=== PATIENT | male | born 1945 | race Caucasian/White ===

== ENCOUNTER 2021-06-17 13:51 | Emergency (ER) | payer MEDICARE, OTHER ==
[2021-06-17] MEDS ORDERED: Sodium Chloride 0.9% 10 ML Syringe FLUSH PRN (14:35)
--- NOTE | 2021-06-17 14:54 | EDM.PDOC ---
<Gab Sosa - Last Filed: 06/18/21 07:42> ED HPI GENERAL MEDICAL PROBLEM - General Chief Complaint: Respiratory Problem Stated Complaint: LOW OXYGEN Time Seen by Provider: 06/17/21 14:15 - Related Data Allergies Allergy/AdvReac Type Severity Reaction Status Date / Time oxycodone Allergy Severe Other Verified 06/17/21 14:34 Home Meds: Home Meds Dutasteride 0.5 mg PO BEDTIME 06/17/21 [History] Folic Acid 1 mg PO BID 06/17/21 [History] Metoprolol Succinate 25 mg PO BEDTIME 06/17/21 [History] Potassium Chloride 10 meq PO BID 06/17/21 [History] Rosuvastatin [Crestor] 20 mg PO BEDTIME 06/17/21 [History] amLODIPine [Norvasc] 5 mg PO BID 06/17/21 [History] metHOTREXate sodium [Methotrexate] 10 mg PO TH 06/17/21 [History] predniSONE [Prednisone] 5 mg PO DAILY 06/17/21 [History] Course - Re-Assessments/Exams Free Text/Narrative Re-Assessment/Exam: 06/18/21 07:42 The patient had an uneventful night. He was switched to a nonrebreather at 5 L/min while supine and sleeping, with an oxygen saturation 90 to 94%, but now that he is awake, we will switch him back to nasal cannula. Because the patient's only need is supplemental oxygen, and because we are on diversion, I suggested to him that we could discharge him home. He is fine with that. We will make arrangements for home supplemental oxygen. Instead of prescribing dexamethasone, the patient can resume his usual prednisone 5 mg/day. Departure - Departure Time of Disposition: 07:45 Disposition: Home, Self-Care 01 Condition: Fair Clinical Impression: COVID-19, Hypoxemia - Discharge Information *PRESCRIPTION DRUG MONITORING PROGRAM REVIEWED*: Not Applicable *COPY OF PRESCRIPTION DRUG MONITORING REPORT IN PATIENT BAM: Not Applicable Instructions: COVID-19 Referrals: Massimo Cabral MD [Primary Care Provider] - Forms: ED Department Discharge Additional Instructions: You were seen in the emergency room after your oxygen saturation was found to be low. Work-up in the ER included several blood tests, a chest x-ray, a CT angiogram of your chest, and an ECG. Arrangements have been made for you to receive home supplemental oxygen. You are currently at 3 L of oxygen per nasal cannula, with an oxygen saturation 91 to 92%. Check your oxygen saturation with your home pulse oximeter several times a day. You may turn your oxygen level up and down to keep your oxygen saturation around 92%. If you require 6 L of oxygen in order to maintain an adequate oxygen saturation, please return to the ER for reevaluation. You may resume your usual prednisone 5 mg/day. Please follow-up with your PCP, Dr. Massimo Cabral, at the next available appointment. <Rosa Isela Freeman - Last Filed: 06/19/21 22:00> ED HPI GENERAL MEDICAL PROBLEM - General Source of Information: Reports: Patient, Family, RN Notes Reviewed History Limitations: Reports: No Limitations - History of Present Illness INITIAL COMMENTS - FREE TEXT/NARRATIVE: Patient is a 76-year-old male presenting to the emergency department with complaints of hypoxia with a known diagnosis of COVID-19. Patient reports he developed Covid symptoms approximately 9 days ago. He describes fatigue, weakness, low-grade fevers, and cough. He has been monitoring her oxygen saturations at home and states they have been 82 to 85% on room air. He went to [facility] today to have infusion of monoclonal antibodies and was advised to come to ER as he was hypoxic. He denies any chest pain, significant shortness of breath, nausea, vomiting, diarrhea. Patient states that he is not have any diagnosed lung conditions, however he is in the process of being worked up for likely interstitial lung disease. He has never been on home oxygen. He has a history of rheumatoid arthritis, but is off his medications at this time as it was felt that they could be worsening his lung condition. Patient received two doses of Pfizer vaccine in September, however, he did not get a booster thus far. Past Medical History HEENT History: Reports: Cataract Cardiovascular History: Reports: Afib, High Cholesterol, Hypertension, [place], Stents Respiratory History: Reports: Other (See Below) Other Respiratory History: suspicion if interstitial lung disease Gastrointestinal History: Reports: Hemorrhoids Genitourinary History: Reports: Prostate Disorder Neurological History: Reports: None Psychiatric History: Reports: None Hematologic History: Reports: None Immunologic History: Reports: Other (See Below) Other Immunologic History: RA Oncologic (Cancer) History: Reports: None Dermatologic History: Reports: None - Infectious Disease History Infectious Disease History: Reports: None ED ROS GENERAL - Review of Systems Review Of Systems: Comprehensive ROS is negative, except as noted in HPI. ED EXAM, GENERAL - Physical Exam Exam: See Below Exam Limited By: No Limitations General Appearance: Alert, WD/WN, No Apparent Distress Respiratory/Chest: No Respiratory Distress, Lungs Clear, Normal Breath Sounds, No Accessory Muscle Use, Chest Non-Tender Cardiovascular: Normal Peripheral Pulses, Regular Rate, Rhythm, No Edema, No Gallop, No JVD, No Murmur, No Rub GI/Abdominal: Normal Bowel Sounds, Soft, Non-Tender, No Organomegaly, No Distention, No Abnormal Bruit, No Mass Neurological: Alert, Oriented, CN II-XII Intact, Normal Cognition, Normal Gait, Normal Reflexes, No Motor/Sensory Deficits Psychiatric: Normal Affect, Normal Mood Skin Exam: Warm, Dry, Intact, Normal Color, No Rash Course - Vital Signs Last Recorded V/S: Last Vital Signs Temp 97.0 F 06/18/21 00:02 Pulse 74 06/18/21 00:02 Resp 20 06/18/21 00:02 BP 129/116 H 06/18/21 00:02 Pulse Ox 92 L 06/18/21 00:30 - Orders/Labs/Meds Labs: Laboratory Tests 06/17/21 06/17/21 06/17/21 Range/Units 15:16 15:16 15:16 WBC 6.39 (4.23-9.07) K/mm3 RBC 5.35 (4.63-6.08) M/mm3 Hgb 16.3 (13.7-17.5) gm/dl Hct 49.1 (40.1-51.0) % MCV 91.8 (79.0-92.2) fl MCH 30.5 (25.7-32.2) pg MCHC 33.2 (32.2-35.5) g/dl RDW Std Deviation 48.9 H (35.1-43.9) fL Plt Count 141 L (163-337) K/mm3 MPV 9.4 (9.4-12.3) fl Neut % (Auto) 84.0 H (34.0-67.9) % Lymph % (Auto) 8.1 L (21.8-53.1) % Garvin % (Auto) 7.2 (5.3-12.2) % Eos % (Auto) 0 L (0.8-7.0) Baso % (Auto) 0.2 (0.1-1.2) % Neut # (Auto) 5.37 (1.78-5.38) K/mm3 Lymph # (Auto) 0.52 L (1.32-3.57) K/mm3 Garvin # (Auto) 0.46 (0.30-0.82) K/mm3 Eos # (Auto) 0.00 L (0.04-0.54) K/mm3 Baso # (Auto) 0.01 (0.01-0.08) K/mm3 Manual Slide Review D-Dimer, Quantitative 1.47 H (0.19-0.50) mg/L Sodium 131 L (136-145) mEq/L Potassium 4.7 (3.5-5.1) mEq/L Chloride 96 L (98-107) mEq/L Carbon Dioxide 26 (21-32) mEq/L Anion Gap 13.7 (5-15) BUN 22 H (7-18) mg/dL Creatinine 1.3 (0.7-1.3) mg/dL Est Cr Clr Drug Dosing TNP Estimated GFR (MDRD) 54 (>60) mL/min BUN/Creatinine Ratio 16.9 (14-18) Glucose 122 H (70-99) mg/dL Calcium 8.5 (8.5-10.1) mg/dL Total Bilirubin 0.7 (0.2-1.0) mg/dL AST 46 H (15-37) U/L ALT 32 (16-63) U/L Alkaline Phosphatase 52 (46-116) U/L Troponin I < 0.017 (0.00-0.056) ng/mL C-Reactive Protein 6.9 H* (<1.0) mg/dL NT-Pro-B Natriuret Pep (0-450) pg/mL Total Protein 6.9 (6.4-8.2) g/dl Albumin 2.8 L (3.4-5.0) g/dl Globulin 4.1 gm/dL Albumin/Globulin Ratio 0.7 L (1-2) 06/17/21 06/18/21 06/18/21 Range/Units 15:16 05:15 05:15 WBC 5.13 (4.23-9.07) K/mm3 RBC 5.33 (4.63-6.08) M/mm3 Hgb 16.1 (13.7-17.5) gm/dl Hct 48.9 (40.1-51.0) % MCV 91.7 (79.0-92.2) fl MCH 30.2 (25.7-32.2) pg MCHC 32.9 (32.2-35.5) g/dl RDW Std Deviation 48.8 H (35.1-43.9) fL Plt Count 143 L (163-337) K/mm3 MPV 9.3 L (9.4-12.3) fl Neut % (Auto) 73.1 H (34.0-67.9) % Lymph % (Auto) 18.3 L (21.8-53.1) % Garvin % (Auto) 7.8 (5.3-12.2) % Eos % (Auto) 0 L (0.8-7.0) Baso % (Auto) 0.2 (0.1-1.2) % Neut # (Auto) 3.75 (1.78-5.38) K/mm3 Lymph # (Auto) 0.94 L (1.32-3.57) K/mm3 Garvin # (Auto) 0.40 (0.30-0.82) K/mm3 Eos # (Auto) 0.00 L (0.04-0.54) K/mm3 Baso # (Auto) 0.01 (0.01-0.08) K/mm3 Manual Slide Review Normal smear D-Dimer, Quantitative (0.19-0.50) mg/L Sodium 135 L (136-145) mEq/L Potassium 5.1 (3.5-5.1) mEq/L Chloride 100 (98-107) mEq/L Carbon Dioxide 29 (21-32) mEq/L Anion Gap 11.1 (5-15) BUN 27 H (7-18) mg/dL Creatinine 1.2 (0.7-1.3) mg/dL Est Cr Clr Drug Dosing TNP Estimated GFR (MDRD) 59 (>60) mL/min BUN/Creatinine Ratio 22.5 H (14-18) Glucose 129 H (70-99) mg/dL Calcium 8.3 L (8.5-10.1) mg/dL Total Bilirubin 0.5 (0.2-1.0) mg/dL AST 41 H (15-37) U/L ALT 32 (16-63) U/L Alkaline Phosphatase 50 (46-116) U/L Troponin I (0.00-0.056) ng/mL C-Reactive Protein 8.2 H* (<1.0) mg/dL NT-Pro-B Natriuret Pep 156 (0-450) pg/mL Total Protein 5.8 L (6.4-8.2) g/dl Albumin 2.6 L (3.4-5.0) g/dl Globulin 3.2 gm/dL Albumin/Globulin Ratio 0.8 L (1-2) Meds: Medications Discontinued Medications Generic Name Dose Route Start Last Admin Trade Name Freq PRN Reason Stop Dose Admin Amlodipine Besylate 5 mg 06/17/21 21:45 06/17/21 23:46 Amlodipine 5 Mg Tab PO 5 mg BID JOMAR Administration Dexamethasone 6 mg 06/17/21 15:40 06/17/21 16:26 Dexamethasone 4 Mg Tab PO 06/17/21 15:41 6 mg ONETIME ONE Administration Finasteride 5 mg 06/18/21 21:00 Finasteride 5 Mg Tab PO BEDTIME JOMAR Finasteride 5 mg 06/17/21 23:24 06/17/21 23:47 Finasteride 5 Mg Tab PO 5 mg BEDTIME JOMAR Administration Folic Acid 1 mg 06/17/21 21:45 06/17/21 23:47 Folic Acid 1 Mg Tab PO 1 mg BID JOMAR Administration Remdesivir 200 mg/ Sodium 250 mls @ 250 mls/hr 06/17/21 19:31 06/17/21 21:25 Chloride IV 06/17/21 19:32 250 mls/hr ONETIME ONE Administration Iopamidol 100 ml 06/17/21 17:24 06/17/21 17:48 Iopamidol 755 Mg/Ml 100 Ml Bottle IVPUSH 06/17/21 17:25 100 ml ONETIME ONE Administration Metoprolol Succinate 25 mg 06/17/21 21:44 06/17/21 23:47 Metoprolol Succinate 25 Mg Tab.Er PO 25 mg BEDTIME JOMAR Administration Non-Formulary Medication 0.5 mg 06/17/21 21:43 06/17/21 23:57 Dutasteride PO Not Given BEDTIME JOMAR Non-Formulary Medication 10 meq 06/17/21 21:45 06/17/21 23:58 Potassium Chloride [Potassium Chloride] PO Not Given BID JOMAR Non-Formulary Medication 20 mg 06/17/21 21:44 06/17/21 23:59 Rosuvastatin PO Not Given BEDTIME JOMAR Potassium Chloride 10 meq 06/17/21 21:00 06/17/21 23:47 Potassium Chloride 10 Meq Tab.Er PO 10 meq BID JOMAR Administration Rosuvastatin Calcium 20 mg 06/18/21 21:00 Rosuvastatin 10 Mg Tab PO BEDTIME JOMAR Simvastatin 40 mg 06/18/21 21:00 Simvastatin 40 Mg Tab PO BEDTIME JOMAR Simvastatin 40 mg 06/17/21 23:23 06/17/21 23:45 Simvastatin 40 Mg Tab PO 40 mg BEDTIME JOMAR Administration Sodium Chloride 10 ml 06/17/21 14:35 06/17/21 17:49 Sodium Chloride 0.9% 10 Ml Syringe FLUSH 10 ml ASDIRECTED PRN Administration Keep Vein Open - Re-Assessments/Exams Free Text/Narrative Re-Assessment/Exam: Patient is a 76-year-old male presenting to the emergency department with complaints of hypoxia with a known diagnosis of Covid. He is approximately 9 days into his illness. Oxygen saturation during triage was in the low to mid 80s. He is currently on 3 L of oxygen saturating low 90s. Patient denies any diagnosed lung conditions, however he is in the process of being worked up for interstitial lung disease. History of RA for which he takes prednisone and methotrexate. He denies shortness of breath. States early in his illness he had a significant cough, however this has improved. Has had low-grade fevers as well as fatigue and weakness. I have ordered blood work, EKG, chest x-ray. Will give dexamethasone 6 mg p.o. Prednisone will be held while patient is on dexamethasone. 06/17/21 1700 Hematology significant for platelets slightly low 141, D-dimer 1.47, sodium 131, chloride 96, BUN 22, CRP 6.9. Troponin is undetectably low. Chest x-ray shows a minimal density of the left lung base possibly due to minimal Covid pneumonia. Given patient's elevated D-dimer and hypoxia with out significant Covid pneumonia, I have ordered a CT angiogram of the chest to rule out PE. Patient will require hospital admission. Unfortunate there are no beds available in our facility. Have been advised that there is a bed available in [place]. Awaiting callback from the hospitalist. 06/17/211929 CT angiogram of the chest impression as follows: 1. No findings of pulmonary embolism. 2. Compression deformity with an L1 which is likely old. 3. Groundglass appearance within the upper lungs and lower lungs compatible with Covid pneumonia. 4. Other chronic findings as described above. Received notification from [facility] house supervisor in [place] that they will not be able to take the patient. Patient has been placed on the waiting list for the [facility]. He will remain in the ER until placement can be foun d. I will begin treatment with remdesivir. He is currently on 3 L of oxygen saturating the low 90s. 06/17/21 22:[address] Sosa. He will assume care and disposition of patient due to end of shift.
--- NOTE | 2021-06-17 15:21 | CR ---
Chest: Frontal view of the chest was obtained. Comparison: No prior chest imaging is available. Heart size is normal. Tortuous thoracic aorta is seen. Minimal density is seen within the left lung base. Lungs otherwise are clear. Bony structures show nothing acute. Impression: 1. Minimal density within the left lung base possibly due to minimal COVID pneumonia. 2. Nothing acute is otherwise seen on frontal chest x-ray. Diagnostic code #3
[2021-06-17] MEDS ORDERED: Dexamethasone 4 MG Tab PO ONE (15:40)
[2021-06-17] MEDS ORDERED: Iopamidol 755 Mg/ML 100 ML Bottle IVPUSH ONE (17:24)
--- NOTE | 2021-06-17 18:18 | CT ---
CT chest Technique: Multiple axial sections through the chest were obtained. Intravenous contrast was utilized. Study has been performed as a pulmonary angiogram protocol. Comparison: Chest x-ray performed earlier on the same day (2:46 PM). Findings: Pulmonary arteries are well opacified. No filling defects are seen to indicate pulmonary embolism. Thoracic aorta shows slight atherosclerotic calcification with no aneurysm. Mediastinum shows no adenopathy. No axillary adenopathy is seen. Coronary artery calcification is noted. No pericardial thickening is seen. Small hiatal hernia is present. Cyst is noted within the right kidney measuring approximately 3.5 cm. Smaller cyst is noted within the left kidney measuring approximately 2.2 cm. Mild patchy groundglass appearance is seen within the upper lungs as well as lower lungs compatible with mild COVID pneumonia. Bone window settings were reviewed which show a compression deformity within L1 which is most likely old. No acute osseous abnormalities are seen. Impression: 1. No findings of pulmonary embolism. 2. Compression deformity within L1 which is likely old. 3. Groundglass appearance within the upper lungs and lower lungs compatible with COVID pneumonia. 4. Other chronic findings as described above. Diagnostic code #3
[2021-06-17] MEDS ORDERED: REMDESIVIR 200 MG in Sodium Chloride 0.9% 250 ML IV ONE (19:31)
[2021-06-17] MEDS ORDERED: Potassium Chloride 10 MEQ Tab.ER PO SCH (21:00)
[2021-06-17] MEDS ORDERED: DUTASTERIDE 0.5 MG PO SCH (21:43)
[2021-06-17] MEDS ORDERED: Metoprolol Succinate 25 MG Tab.ER PO SCH (21:44)
[2021-06-17] MEDS ORDERED: Non-Formulary Medication 1 Each (Rosuvastatin 20 MG Tablet) PO SCH (21:44)
[2021-06-17] MEDS ORDERED: amLODIPine 5 MG Tab PO SCH (21:45)
[2021-06-17] MEDS ORDERED: Folic Acid 1 MG Tab PO SCH (21:45)
[2021-06-17] MEDS ORDERED: Non-Formulary Medication 1 Each (Potassium Chloride [Potassium Chloride] 10 MEQ Capsule.Er PO SCH (21:45)
[2021-06-17] MEDS ORDERED: Simvastatin 40 MG Tab PO SCH (23:23)
[2021-06-17] MEDS ORDERED: Finasteride 5 MG Tab PO SCH (23:24)
[2021-06-18] MEDS ORDERED: Rosuvastatin 10 MG Tab PO SCH (21:00)
[2021-06-18] MEDS ORDERED: Finasteride 5 MG Tab PO SCH (21:00)
[2021-06-18] MEDS ORDERED: Simvastatin 40 MG Tab PO SCH (21:00)
== END 2021-06-18 09:50 | disposition home or self-care (01) ==
LOC: JD.ED 13:51
DX: U07.1 COVID-19 (principal); R09.02 Hypoxemia; I48.91 Unspecified atrial fibrillation; I10 Essential (primary) hypertension; E78.00 Pure hypercholesterolemia, unspecified; I25.2 Old myocardial infarction; I44.5 Left posterior fascicular block; Z88.5 Allergy status to narcotic agent; Z79.899 Other long term (current) drug therapy; R06.02 Shortness of breath
CPT/HCPCS: 36415; 71045; 71275; 80053; 83880; 84484; 85025; 85379; 86140; 93005; 96365; 99285; A9270; J7050; J8540; Q9967; 93010

== ENCOUNTER 2021-06-20 14:13 | Emergency (ER) | payer MEDICARE, OTHER ==
[2021-06-20] MEDS ORDERED: Sodium Chloride 0.9% 10 ML Syringe FLUSH PRN (14:31)
--- NOTE | 2021-06-20 14:55 | EDM.PDOC ---
ED HPI GENERAL MEDICAL PROBLEM - General Chief Complaint: Respiratory Problem Stated Complaint: ALEXA AMB Time Seen by Provider: 06/20/21 14:24 Source of Information: Reports: Patient, Old Records (visit from 06/17/2021), RN Notes Reviewed History Limitations: Reports: No Limitations - History of Present Illness INITIAL COMMENTS - FREE TEXT/NARRATIVE: Patient is a 76-year-old male brought to the ER by [facility] for the evaluation of his COVID-19 illness. Patient states that he has been ill since 09 June with symptoms, and was tested on 06/11/2021 and was positive. Notes that he went to the [facility] on 17 June to see if he could get the antibody infusion but was found to be hypoxic and sent to the ER for evaluation. Work-up in the ER included some labs, and a chest CT which showed no signs of pulmonary embolus, but diffuse Covid pneumonia, and he was sent home with home oxygen at that time. Patient states has been using this at home and has not needed over 4 L that he was aware of, but he called the ambulance today because he was just not feeling well. He presents to the ER on 10 L via nonrebreather, and O2 sats are about 92% on room air. Patient does not appear visibly dyspneic, but slightly breathless with sentences. No increased fevers or chills, no change in sputum color or worsening cough he states he has some abdomen tenderness due to the coughing however. Not having any nausea/vomiting/diarrhea. States he does have a history of RA and is on methotrexate. - Related Data Allergies Allergy/AdvReac Type Severity Reaction Status Date / Time oxycodone Allergy Severe Other Verified 06/20/21 14:43 Home Meds: Home Meds Dutasteride 0.5 mg PO BEDTIME 06/17/21 [History] Folic Acid 1 mg PO BID 06/17/21 [History] Metoprolol Succinate 25 mg PO BEDTIME 06/17/21 [History] Potassium Chloride 10 meq PO BID 06/17/21 [History] Rosuvastatin [Crestor] 20 mg PO BEDTIME 06/17/21 [History] amLODIPine [Norvasc] 5 mg PO BID 06/17/21 [History] metHOTREXate sodium [Methotrexate] 10 mg PO TH 06/17/21 [History] predniSONE [Prednisone] 5 mg PO DAILY 06/17/21 [History] Past Medical History HEENT History: Reports: Cataract Cardiovascular History: Reports: Afib, High Cholesterol, Hypertension, [place], Stents Respiratory History: Reports: Other (See Below) Other Respiratory History: suspicion if interstitial lung disease secondary to RA/methotrexate Gastrointestinal History: Reports: Hemorrhoids Genitourinary History: Reports: Prostate Disorder Immunologic History: Reports: Other (See Below) Other Immunologic History: RA - Infectious Disease History Infectious Disease History: Reports: Novel Coronavirus (06/11/2021) Social & Family History - Family History Family Medical History: No Pertinent Family History - Caffeine Use Caffeine Use: Reports: Coffee - Recreational Drug Use Recreational Drug Use: No ED ROS GENERAL - Review of Systems Review Of Systems: Comprehensive ROS is negative, except as noted in HPI. ED EXAM, GENERAL - Physical Exam Exam: See Below Exam Limited By: No Limitations General Appearance: Alert, WD/WN, No Apparent Distress Respiratory/Chest: No Respiratory Distress, Lungs Clear, No Accessory Muscle Use, Chest Non-Tender, Decreased Breath Sounds (diffuse bilaterally) Cardiovascular: Normal Peripheral Pulses, Regular Rate, Rhythm, No Edema Extremities: Normal Inspection, Normal Capillary Refill Neurological: Alert, Oriented, Normal Cognition, No Motor/Sensory Deficits Psychiatric: Normal Affect, Normal Mood Skin Exam: Warm, Dry, Intact, Normal Color, No Rash Course - Vital Signs Last Recorded V/S: Last Vital Signs Temp 98.0 F 06/20/21 14:26 Pulse 101 H 06/20/21 14:26 Resp 22 H 06/20/21 14:26 BP 106/60 06/20/21 14:26 Pulse Ox 90 L 06/20/21 14:26 - Orders/Labs/Meds Orders: Active Orders 24 hr Category Date Time Status Oxygen Therapy, ED [RC] ASDIRECTED Care 06/20/21 14:31 Active Peripheral IV Care [RC] . DIRECTED Care 06/20/21 14:31 Active Sodium Chloride 0.9% [Saline Flush] Med 06/20/21 14:31 Active 10 ml FLUSH ASDIRECTED PRN Peripheral IV Insertion Adult [OM.PC] Routine Oth 06/20/21 14:31 Ordered Medication Orders Sodium Chloride (Sodium Chloride 0.9% 10 Ml Syringe) 10 ml FLUSH ASDIRECTED PRN PRN Reason: Keep Vein Open Last Admin: 06/20/21 15:31 Dose: 10 ml Documented by: ALTA Labs: Laboratory Tests 06/20/21 06/20/21 06/20/21 Range/Units 14:53 14:53 14:53 WBC 6.81 (4.23-9.07) K/mm3 RBC 5.60 (4.63-6.08) M/mm3 Hgb 16.6 (13.7-17.5) gm/dl Hct 51.1 H (40.1-51.0) % MCV 91.3 (79.0-92.2) fl MCH 29.6 (25.7-32.2) pg MCHC 32.5 (32.2-35.5) g/dl RDW Std Deviation 49.3 H (35.1-43.9) fL Plt Count 220 D (163-337) K/mm3 MPV 9.3 L (9.4-12.3) fl Neut % (Auto) 87.3 H (34.0-67.9) % Lymph % (Auto) 10.3 L (21.8-53.1) % Miller % (Auto) 1.6 L (5.3-12.2) % Eos % (Auto) 0.1 L (0.8-7.0) Baso % (Auto) 0.1 (0.1-1.2) % Neut # (Auto) 5.94 H (1.78-5.38) K/mm3 Lymph # (Auto) 0.70 L (1.32-3.57) K/mm3 Miller # (Auto) 0.11 L (0.30-0.82) K/mm3 Eos # (Auto) 0.01 L (0.04-0.54) K/mm3 Baso # (Auto) 0.01 (0.01-0.08) K/mm3 D-Dimer, Quantitative (0.19-0.50) mg/L Sodium 136 (136-145) mEq/L Potassium 4.1 (3.5-5.1) mEq/L Chloride 99 (98-107) mEq/L Carbon Dioxide 26 (21-32) mEq/L Anion Gap 15.1 H (5-15) BUN 24 H (7-18) mg/dL Creatinine 1.1 (0.7-1.3) mg/dL Est Cr Clr Drug Dosing 59.91 mL/min Estimated GFR (MDRD) > 60 (>60) mL/min BUN/Creatinine Ratio 21.8 H (14-18) Glucose 114 H (70-99) mg/dL Calcium 8.4 L (8.5-10.1) mg/dL Magnesium 1.7 L (1.8-2.4) mg/dL Total Bilirubin 1.1 H (0.2-1.0) mg/dL AST 48 H (15-37) U/L ALT 41 (16-63) U/L Alkaline Phosphatase 61 (46-116) U/L Troponin I (0.00-0.056) ng/mL C-Reactive Protein 5.9 H* (<1.0) mg/dL Total Protein 7.0 (6.4-8.2) g/dl Albumin 2.7 L (3.4-5.0) g/dl Globulin 4.3 gm/dL Albumin/Globulin Ratio 0.6 L (1-2) 06/20/21 06/20/21 Range/Units 14:53 14:53 WBC (4.23-9.07) K/mm3 RBC (4.63-6.08) M/mm3 Hgb (13.7-17.5) gm/dl Hct (40.1-51.0) % MCV (79.0-92.2) fl MCH (25.7-32.2) pg MCHC (32.2-35.5) g/dl RDW Std Deviation (35.1-43.9) fL Plt Count (163-337) K/mm3 MPV (9.4-12.3) fl Neut % (Auto) (34.0-67.9) % Lymph % (Auto) (21.8-53.1) % Miller % (Auto) (5.3-12.2) % Eos % (Auto) (0.8-7.0) Baso % (Auto) (0.1-1.2) % Neut # (Auto) (1.78-5.38) K/mm3 Lymph # (Auto) (1.32-3.57) K/mm3 Miller # (Auto) (0.30-0.82) K/mm3 Eos # (Auto) (0.04-0.54) K/mm3 Baso # (Auto) (0.01-0.08) K/mm3 D-Dimer, Quantitative 1.89 H (0.19-0.50) mg/L Sodium (136-145) mEq/L Potassium (3.5-5.1) mEq/L Chloride (98-107) mEq/L Carbon Dioxide (21-32) mEq/L Anion Gap (5-15) BUN (7-18) mg/dL Creatinine (0.7-1.3) mg/dL Est Cr Clr Drug Dosing mL/min Estimated GFR (MDRD) (>60) mL/min BUN/Creatinine Ratio (14-18) Glucose (70-99) mg/dL Calcium (8.5-10.1) mg/dL Magnesium (1.8-2.4) mg/dL Total Bilirubin (0.2-1.0) mg/dL AST (15-37) U/L ALT (16-63) U/L Alkaline Phosphatase (46-116) U/L Troponin I < 0.017 (0.00-0.056) ng/mL C-Reactive Protein (<1.0) mg/dL Total Protein (6.4-8.2) g/dl Albumin (3.4-5.0) g/dl Globulin gm/dL Albumin/Globulin Ratio (1-2) Meds: Medications Generic Name Dose Route Start Last Admin Trade Name Freq PRN Reason Stop Dose Admin Sodium Chloride 10 ml 06/20/21 14:31 06/20/21 15:31 Sodium Chloride 0.9% 10 Ml Syringe FLUSH 10 ml ASDIRECTED PRN Administration Keep Vein Open - Re-Assessments/Exams Free Text/Narrative Re-Assessment/Exam: 06/20/21 14:55 Patient presents to the ED for his ongoing COVID-19 and hypoxia; he is requiring quite a bit of oxygen at this time. We will go ahead and repeat labs and get a chest x-ray. Patient will likely need hospital admission d/t his increased oxygen needs. 06/20/21 16:47 CBC is unremarkable, D-dimer elevated at 1.89, CRP at 5.9. Troponin is still pending. I did discuss the case with Dr. Ghosh, hospitalist on-call, does recomm end that the patient be transferred to a higher level of care d/t oxygen needs and history of methotrexate and prednisone. I was able to speak with Dr. Gonzáles at [facility] in [place], who did ultimately accept the patient for transfer. He does recommend 10 mg IV dexamethasone due to the patient's steroid use chronically. Patient was made aware of this and he does agree to the transfer at this time. We will go ahead and try to lay the patient prone to see if this helps improve his oxygenation while we are waiting transfer. Departure - Departure Time of Disposition: 18:32 Disposition: DC/Tfer to [facility] 02 Condition: Fair Clinical Impression: Pneumonia due to COVID-19 virus, Hypoxia - Discharge Information *PRESCRIPTION DRUG MONITORING PROGRAM REVIEWED*: No *COPY OF PRESCRIPTION DRUG MONITORING REPORT IN PATIENT BAM: No Forms: ED Department Discharge Sepsis Event Note (ED) - Focused Exam Vital Signs: Vital Signs Temp Pulse Resp BP Pulse Ox 06/20/21 14:26 98.0 F 101 H 22 H 106/60 90 L - My Orders Last 24 Hours: My Active Orders 06/20/21 14:31 Oxygen Therapy, ED [RC] ASDIRECTED Peripheral IV Care [RC] . DIRECTED Sodium Chloride 0.9% [Saline Flush] 10 ml FLUSH ASDIRECTED PRN Peripheral IV Insertion Adult [OM.PC] Routine - Assessment/Plan Last 24 Hours: My Active Orders 06/20/21 14:31 Oxygen Therapy, ED [RC] ASDIRECTED Peripheral IV Care [RC] . DIRECTED Sodium Chloride 0.9% [Saline Flush] 10 ml FLUSH ASDIRECTED PRN Peripheral IV Insertion Adult [OM.PC] Routine
--- NOTE | 2021-06-20 15:01 | CR ---
Chest: Frontal view of the chest was obtained. Comparison: Prior CT chest study of 06/17/21 and chest x-ray also performed on 06/17/21. Patchy peripheral densities are seen within both sides of the chest which have increased from prior chest CT. Heart size appears within normal limits. Tortuous thoracic aorta is seen. Bony structures show nothing acute. Impression: 1. Patchy increased density within both sides of the chest compatible with COVID pneumonia. Findings slightly increased from prior chest x-ray. Diagnostic code #3
[2021-06-20] MEDS ORDERED: methylPREDNISolone Sodium Succinate 125 MG/2 ML SDV IVPUSH ONE (17:45)
[2021-06-20] MEDS ORDERED: Dexamethasone 10 MG/ML SDV IVPUSH ONE (17:47)
== END 2021-06-20 19:20 ==
LOC: JD.ED 14:13
DX: U07.1 COVID-19 (principal); J12.82 Pneumonia due to coronavirus disease 2019; R09.02 Hypoxemia; I48.91 Unspecified atrial fibrillation; E78.00 Pure hypercholesterolemia, unspecified; I10 Essential (primary) hypertension; I25.2 Old myocardial infarction; Z95.5 Presence of coronary angioplasty implant and graft; Z88.5 Allergy status to narcotic agent; Z79.899 Other long term (current) drug therapy
CPT/HCPCS: 36415; 71045; 80053; 83735; 84484; 85025; 85379; 86140; 96374; 99285; J1100